=== PATIENT | male | born 1945 | race Caucasian/White ===

== ENCOUNTER 2022-01-10 12:00 | Outpatient (CLI) | payer MEDICARE, OTHER | END 2022-01-10 12:01 | disposition home or self-care (01) | LOC: CSHCT 12:00 | PROVIDERS: ATTEND Urology | DX: R31.0 Gross hematuria (principal); N20.0 Calculus of kidney; D73.9 Disease of spleen, unspecified; K59.00 Constipation, unspecified | CPT/HCPCS: 74178; 82565 ==

== ENCOUNTER 2022-06-26 13:30 | Outpatient (CLI) | payer MEDICARE, OTHER | END 2022-06-26 13:31 | disposition home or self-care (01) | LOC: CSHULT 13:30 | PROVIDERS: ATTEND Urology | DX: R31.0 Gross hematuria (principal); N20.0 Calculus of kidney | CPT/HCPCS: 76770 ==